=== PATIENT | male | born 1965 | race Caucasian/White ===

== ENCOUNTER 2018-03-21 06:31 | Inpatient (IN) | payer OTHER ==
[~2018-03-21] VITALS: Ht 180.3 cm; Wt 80.3 kg
[2018-03-21] MEDS ORDERED: SODIUM CHLORIDE 0.9% 1,000ML IVBOLUS ONE (07:00)
[2018-03-21] MEDS ORDERED: SODIUM CHLORIDE FLUSH 10ML SYR IVF ONE (07:00)
[2018-03-21] MEDS ORDERED: CLINDAMYCIN PMX 900MG/50ML 50 ML IVPB ONE (07:00)
[2018-03-21 07:11] LABS: BASOPHILS # (AUTO) 0.01 x10^3/uL (0-0.1); BASOPHILS % (AUTO) 0 % (0-1); EOSINOPHILS # (AUTO) 0.01 x10^3/uL (0-0.4); EOSINOPHILS % (AUTO) 0 % (1-7); LYMPHOCYTES # (AUTO) 0.96 x10^3/uL (1-3.4); LYMPHOCYTES % (AUTO) 9 % (22-44); MD NO; MEAN CORPUSCULAR HEMOGLOBIN 30.1 pg (27.5-34.5); MEAN CORPUSCULAR VOLUME 88.3 fL (81-97); MEAN PLATELET VOLUME 7.2 fL (7.4-10.4); MONOCYTES # (AUTO) 1.41 x10^3/uL (0.2-0.8); MONOCYTES % (AUTO) 14 % (2-9); NEUTROPHILS # (AUTO) 7.96 x10^3/uL (1.8-6.8); NEUTROPHILS % (AUTO) 77 % (42-75); PLATELET COUNT 244 x10^3/uL (130-400); RED BLOOD COUNT 5.42 x10^6/uL (4.38-5.82); RED CELL DISTRIBUTION WIDTH 13.9 % (9.4-14.8)
[2018-03-21] MEDS ORDERED: CLINDAMYCIN PMX 900MG/50ML 50 ML ONE (07:22)
[2018-03-21 07:23] LABS: ALBUMIN 3.5 g/dL (3.4-5.0); CHLORIDE 107 mmol/L (98-107); CREATININE 1.08 mg/dL (0.7-1.3)
[2018-03-21 07:24] LABS: ANION GAP 4 mmol/L (5-15); CALCIUM 8.9 mg/dL (8.5-10.1)
[2018-03-21] MEDS ORDERED: ACETAMINOPHEN 325 MG TABLET PO PRN (09:30)
[2018-03-21] MEDS ORDERED: morphine SULFATE 10 MG/ML, 1ML IVPush PRN (09:30)
[2018-03-21] MEDS ORDERED: hydrALAzine 20 MG/ML, 1ML IVPush PRN (09:30)
[2018-03-21] MEDS ORDERED: POLYETHYLENE GLYCOL 17 GM PACKET PO PRN (09:30)
[2018-03-21 09:58] LABS: HCT (SEDRATE) 47.8 % (39.2-51.8)
[2018-03-21 10:03] LABS: PROTHROMBIN TIME 10.3 Seconds (9.6-11.5)
[2018-03-21] MEDS: SODIUM CHLORIDE 0.9% 1,000 ML IV SCH ×3 (10:26→22:57)
[2018-03-21 11:08] VITALS: BP 124/77
[2018-03-21] MEDS ORDERED: FLUO20CA19 PO (11:12)
[2018-03-21] MEDS ORDERED: FLUOXETINE HCL 20 MG CAPSULE PO SCH (11:30)
[2018-03-21] MEDS ORDERED: GADOBUTROL 10 MMOL/10 ML PFS ONE (12:47)
[2018-03-21 14:01] VITALS: BP 114/74
[2018-03-21] MEDS ORDERED: VANCOMYCIN PER PHARMACY MC PRN (15:00)
[2018-03-21] MEDS ORDERED: PHARMACOKINETIC MONITORING MC PRN (15:30)
[2018-03-21] MEDS ORDERED: CLINDAMYCIN PMX 600MG/50ML 50 ML IV SCH (16:00)
[2018-03-21] MEDS: VANCOMYCIN 1,500 MG in SODIUM CHLORIDE 0.9% 250 ML IV SCH (16:51)
[2018-03-21] MEDS: AMPICILLIN/SULBACTAM 3 GM in SODIUM CHLORIDE 0.9% 100 ML IV SCH ×2 (16:51→22:49)
[2018-03-21 19:01] VITALS: BP 130/80
[2018-03-22 03:12] VITALS: BP 123/68
[2018-03-22] MEDS: VANCOMYCIN 1,500 MG in SODIUM CHLORIDE 0.9% 250 ML IV SCH ×2 (04:21→16:34)
[2018-03-22 05:01] LABS: BASOPHILS # (AUTO) 0.04 x10^3/uL (0-0.1); BASOPHILS % (AUTO) 1 % (0-1); EOSINOPHILS # (AUTO) 0.09 x10^3/uL (0-0.4); EOSINOPHILS % (AUTO) 1 % (1-7); LYMPHOCYTES # (AUTO) 1.43 x10^3/uL (1-3.4); LYMPHOCYTES % (AUTO) 15 % (22-44); MD NO; MEAN CORPUSCULAR HGB CONC 33.8 g/dL (33.2-36.2); MEAN CORPUSCULAR VOLUME 88.8 fL (81-97); MEAN PLATELET VOLUME 7.1 fL (7.4-10.4); MONOCYTES # (AUTO) 1.23 x10^3/uL (0.2-0.8); MONOCYTES % (AUTO) 13 % (2-9); NEUTROPHILS % (AUTO) 70 % (42-75); PLATELET COUNT 248 x10^3/uL (130-400); RED BLOOD COUNT 5.15 x10^6/uL (4.38-5.82); RED CELL DISTRIBUTION WIDTH 14.3 % (9.4-14.8)
[2018-03-22 05:11] LABS: ANION GAP 9 mmol/L (5-15); CALCIUM 8.3 mg/dL (8.5-10.1); CHLORIDE 109 mmol/L (98-107); CREATININE 0.88 mg/dL (0.7-1.3)
[2018-03-22] MEDS ORDERED: BACITRACIN 50,000 UNIT ONE (06:12)
[2018-03-22] MEDS ORDERED: BUPIVACAINE 0.25% ONE (06:12)
[2018-03-22] MEDS ORDERED: KETOROLAC 30 MG/1 ML ONE (06:31)
[2018-03-22] MEDS ORDERED: PROPOFOL 10 MG/ML, 20ML ONE (06:31)
[2018-03-22] MEDS ORDERED: ONDANSETRON 2MG/ML, 2ML ONE (06:31)
[2018-03-22] MEDS ORDERED: MIDAZOLAM 1 MG/ML, 2ML ONE (06:31)
[2018-03-22] MEDS ORDERED: FENTANYL PF 100 MCG/2ML ONE ×2 (06:31→06:47)
[2018-03-22] MEDS ORDERED: ROCURONIUM 10MG/ML,5ML ONE (06:32)
[2018-03-22] MEDS ORDERED: DEXAMETHASONE 4 MG/ML, 1ML ONE (06:40)
[2018-03-22] MEDS ORDERED: BUPIVACAINE 0.25% INFIL ONE (06:46)
[2018-03-22] MEDS ORDERED: BACITRACIN 50,000 UNIT IRRIG ONE (06:46)
[2018-03-22] MEDS ORDERED: OXYcodone 5 MG/5 ML ORAL.SOL UDC PO PRN (07:00)
[2018-03-22] MEDS ORDERED: ONDANSETRON ODT 8 MG PO PRN (07:00)
[2018-03-22] MEDS ORDERED: HYDROmorphone 1 MG/ML, 1ML IV PRN (07:00)
[2018-03-22] MEDS ORDERED: MEPERIDINE/PF 25MG/0.5ML IVPush PRN (07:00)
[2018-03-22] MEDS ORDERED: PROMETHAZINE 12.5 MG SUPP PR PRN (07:00)
[2018-03-22] MEDS ORDERED: MORPHINE SULFATE 4 MG/ML, 1ML IVPush PRN (07:00)
[2018-03-22] MEDS ORDERED: FENTANYL PF 100 MCG/2ML IV PRN (07:00)
[2018-03-22] MEDS ORDERED: LABETALOL 5MG/ML, 20ML IV PRN (07:00)
[2018-03-22] MEDS ORDERED: hydrALAzine 20 MG/ML, 1ML IV PRN (07:00)
[2018-03-22] MEDS: AMPICILLIN/SULBACTAM 3 GM in SODIUM CHLORIDE 0.9% 100 ML IV SCH ×3 (07:40→22:37)
[2018-03-22] MEDS ORDERED: OXYcodone 5 MG/5 ML ORAL.SOL UDC ONE (07:45)
[2018-03-22 08:45] VITALS: BP 119/88
[2018-03-22] MEDS: SODIUM CHLORIDE 0.9% 1,000 ML IV SCH ×2 (12:00→19:58)
[2018-03-22 14:40] VITALS: BP 110/65
[2018-03-22 19:09] VITALS: BP 109/70
[2018-03-23 00:25] VITALS: BP 124/73
[2018-03-23] MEDS: VANCOMYCIN 1,500 MG in SODIUM CHLORIDE 0.9% 250 ML IV SCH (03:47)
[2018-03-23] MEDS: SODIUM CHLORIDE 0.9% 1,000 ML IV SCH ×2 (03:47→12:00)
[2018-03-23 05:49] LABS: CHLORIDE 109 mmol/L (98-107)
[2018-03-23 05:59] LABS: ALANINE AMINOTRANSFERASE 44 U/L (12-78); ALBUMIN 2.7 g/dL (3.4-5.0); ALKALINE PHOSPHATASE 67 U/L (45-117); ANION GAP 7 mmol/L (5-15); BILIRUBIN,TOTAL 1.2 mg/dL (0.2-1.0); CALCIUM 7.8 mg/dL (8.5-10.1); CREATININE 0.82 mg/dL (0.7-1.3); TOTAL PROTEIN 5.7 g/dL (6.4-8.2)
[2018-03-23] MEDS: AMPICILLIN/SULBACTAM 3 GM in SODIUM CHLORIDE 0.9% 100 ML IV SCH ×2 (06:48→15:00)
[2018-03-23 07:04] VITALS: BP 124/72
[2018-03-23] MEDS ORDERED: FLUOXETINE HCL 20 MG CAPSULE PO SCH (09:00)
[2018-03-23 12:35] VITALS: BP 138/85
[2018-03-23] MEDS ORDERED: AMOX1TAB12 PO (13:45)
[2018-03-23] MEDS ORDERED: DOXY100T PO (13:45)
== END 2018-03-23 16:15 | disposition home or self-care (01) | DRG 513 ==
LOC: ED 07:59 → EDIP 08:00 → ED 08:30 → 4NOR 09:21 → DCLOUNGE 03-23 16:06
PROVIDERS: ADMIT Hospitalist; ATTEND Hospitalist
PROC: 0L980ZZ Drainage of Left Hand Tendon, Open Approach (ICD-10-PCS; principal; 2018-03-21)
DX: M65.142 Other infective (teno)synovitis, left hand (principal); L03.114 Cellulitis of left upper limb; S61.233A Puncture wound without foreign body of left middle finger without damage to nail, initial encounter; F41.9 Anxiety disorder, unspecified; S60.453A Superficial foreign body of left middle finger, initial encounter; L03.012 Cellulitis of left finger; F32.9 Major depressive disorder, single episode, unspecified; X58.XXXA Exposure to other specified factors, initial encounter; Y93.89 Activity, other specified; Y92.096 Garden or yard of other non-institutional residence as the place of occurrence of the external cause; Y99.8 Other external cause status; Z86.73 Personal history of transient ischemic attack (TIA), and cerebral infarction without residual deficits
CPT/HCPCS: 36415; 80048; 80053; 82040; 83735; 84100; 84443; 85025; 85610; 85651; 87040; 87070; 87075; 87205; 99285; A9585; J0295; J1100; J1885; J2250; J2405; J2704; J3010; J3370; J3490; J7030; J7050

== ENCOUNTER 2021-03-15 21:21 | Emergency (ER) | payer OTHER ==
[~2021-03-15 21:21] MED LIST: AMOX1TAB12 PO; DOXY100T PO; FLUO20CA19 PO; QUET25TA5 PO
[2021-03-15] MEDS ORDERED: DIPH,PERTUSS(ACELL),TET VAC/PF 0.5 ML IM-VACC ONE (22:00)
[2021-03-15] MEDS ORDERED: LIDOCAINE 1%-EPI 1:100K, 20ML INFIL ONE (22:00)
--- NOTE | 2021-03-16 01:20 | NUR ---
Patient to room from lobby. Medicated patient per mar. Awaiting sutures.
[2021-03-16] MEDS ORDERED: LIDOCAINE 1%-EPI 1:100K, 20ML ONE (01:22)
[2021-03-16] MEDS ORDERED: DIPH,PERTUSS(ACELL),TET VAC/PF 0.5 ML IM-VACC ONE (01:23)
[2021-03-16 01:29] VITALS: BP 114/79
--- NOTE | 2021-03-16 01:56 | NUR ---
PROCESSING OPERATOR AT BEDSIDE FOR WOUND IRRIGATION
[2021-03-16] MEDS ORDERED: BACITRACIN ZINC OINT 500U/GM, 0.9 GM ONE (02:37)
--- NOTE | 2021-03-16 02:39 | NUR ---
SUTURING DONE. BACITRACIN APPLIED.
[2021-03-16] MEDS ORDERED: BACITRACIN ZINC OINT 500U/GM, 0.9 GM TP STA (02:40)
--- NOTE | 2021-03-16 02:49 | NUR ---
PATIENT DISCHARGED WITH INSTRUCTION. VERBALIZED UNDERSTANDING.
== END 2021-03-16 02:52 | disposition home or self-care (01) ==
LOC: ED 21:30
DX: S01.81XA Laceration without foreign body of other part of head, initial encounter (principal); X58.XXXA Exposure to other specified factors, initial encounter; Y93.89 Activity, other specified; Y92.009 Unspecified place in unspecified non-institutional (private) residence as the place of occurrence of the external cause; Y99.8 Other external cause status
CPT/HCPCS: 70450; 70486; 90471; 90715; 99285

== ENCOUNTER 2021-06-17 17:20 | Emergency (ER) | payer OTHER ==
[~2021-06-17] VITALS: Ht 180.3 cm; Wt 82.8 kg
--- NOTE | 2021-06-17 18:31 | NUR ---
PT VERY FIGITY IN [place], ATTEMPTING TO GET OUT OF GURNEY. PT UNSTEADY ON FEET. REDIRECTED TO STAY IN [place]. IV SECURED HE WAS ATTEMPTING TO PULL OUT. WILL CONTINUE TO MONTIOR CLOSEY
[2021-06-17] MEDS ORDERED: HALOPERIDOL 5 MG/ML ONE (19:27)
[2021-06-17] MEDS ORDERED: SODIUM CHLORIDE 0.9% 1,000ML IVBOLUS ONE (19:30)
--- NOTE | 2021-06-17 19:30 | NUR ---
ATTEMPTED TO ASSIST PATIENT WITH URINE SAMPLE. PATIENT UNABLE TO PROVIDE SAMPLE AT THIS TIME. VSS. CALL PROCTOR IN REACH. BED IN LOW POSITION. WILL CONTINUE TO MONITOR.
[2021-06-17 19:35] LABS: BASOPHILS % (AUTO) 0 % (0-1); EOSINOPHILS % (AUTO) 0 % (1-7); LYMPHOCYTES % (AUTO) 5 % (22-44); MEAN CORPUSCULAR HEMOGLOBIN 30.2 pg (27.5-34.5); MEAN CORPUSCULAR HGB CONC 34.3 g/dL (33.2-36.2); MEAN PLATELET VOLUME 6.6 fL (7.4-10.4); MONOCYTES % (AUTO) 6 % (2-9); NEUTROPHILS % (AUTO) 88 % (42-75); PLATELET COUNT 356 x10^3/uL (130-400); RED CELL DISTRIBUTION WIDTH 14.5 % (9.4-14.8)
[2021-06-17 19:38] LABS: ALANINE AMINOTRANSFERASE 38 U/L (12-78); ALBUMIN 3.9 g/dL (3.4-5.0); ANION GAP 13 mmol/L (5-15); CALCIUM 8.8 mg/dL (8.5-10.1); CHLORIDE 108 mmol/L (98-107); CREATININE 1.35 mg/dL (0.7-1.3); SALICYLATE LEVEL < 1.7 mg/dL (2.8-20.0)
[2021-06-17 19:48] LABS: ALKALINE PHOSPHATASE 104 U/L (45-117); BILIRUBIN,TOTAL 1.1 mg/dL (0.2-1.0); TOTAL PROTEIN 7.3 g/dL (6.4-8.2)
[2021-06-17] MEDS ORDERED: HALOPERIDOL 5 MG/ML IV ONE (20:00)
--- NOTE | 2021-06-17 20:00 | NUR ---
PATIENT REMOVED IV. PATIENT RECEIVED 500ML OF NS. HR IMPROVED. WILL HOLD OFF ON PLACING ANOTHER IV AT THIS DUE TO PSYCH HX AND WORKUP AT THIS TIME.
[2021-06-17 20:27] LABS: MICROSCOPIC NOT IND
--- NOTE | 2021-06-17 20:30 | NUR ---
PATIENT RESTING IN STRETCHER WITH EYES CLOSED. NO LONGER FIGTY. NAD. VSS. CALL PROCTOR IN REACH. WILL CONTINUE TO MONITOR.
[2021-06-17 20:38] LABS: AMPHETAMINE SCREEN, URINE Negative (Negative); BARBITURATE SCREEN, URINE Negative (Negative); BENZODIAZEPINE SCREEN, URINE Negative (Negative); CANNABINOID SCREEN, URINE Negative (Negative); COCAINE SCREEN, URINE Negative (Negative); METHADONE SCREEN, URINE Negative (Negative); OPIATE SCREEN, URINE Negative (Negative)
[2021-06-17] MEDS ORDERED: LORazepam 2 MG/ML, 1ML ONE (21:00)
[2021-06-17] MEDS ORDERED: LORazepam 2 MG/ML, 1ML IVPush ONE (21:00)
[2021-06-17] MEDS ORDERED: LACTATED RINGERS 1,000 ML IVBOLUS ONE (21:00)
--- NOTE | 2021-06-17 22:48 | NUR ---
U DENIED PATIENT FOR ADMISSION
--- NOTE | 2021-06-17 22:53 | NUR ---
Inappropriate insurance for admission
--- NOTE | 2021-06-18 01:55 | NUR ---
REPORT GIVEN TO BRAYDON CARBJAAL WHO WILL ASSUME CARE.
--- NOTE | 2021-06-18 02:03 | NUR ---
[facility]
--- NOTE | 2021-06-18 02:13 | NUR ---
[facility] ([facility]) NO BEDS AT THIS TIME
--- NOTE | 2021-06-18 02:45 | NUR ---
Patient is resting comfortably in bed. Bed in lowest, rails engaged, call light on lap. A&OX4, BREATHING EVEN AND UNLABORED. PT APPEARS ANXIOUS AND FIDGETY SAFETY PRECAUTIONS PUT INTOPLACE. SITTER OUTSIDE ROOM. PERSONAL BELONGINGS SECURED IN LOCKERS. GARAGE DOORS SECURED. ED SUICIDE TRAY ORDERED FOR MORNING. INFORMED PT THAT WE ARE WAITING ON A HOSPITAL BED.
--- NOTE | 2021-06-18 03:38 | NUR ---
[facility] FROM [facility] CALLED. THEY ARE CURRENTLY FULL BUT EXPECT TO HAVE DISCHARGES IN THE AM
--- NOTE | 2021-06-18 04:16 | NUR ---
Patient is SLEEPING comfortably in bed. EYES CLOSED. Bed in lowest, rails engaged, call light on lap. WCTM. NADN. BREATHING EVEN AND UNLABORED. ALL SAFETY MONITORS IN PLACE
--- NOTE | 2021-06-18 05:48 | NUR ---
SPOKE TO HOUSEKEEPING ABOUT NOT RECEIVING HOSPITAL BED THAT WAS ASKED FOR EARLIER IN NIGHT. HOUSE KEEPING STATED THEY WILL SEND IT SOON
--- NOTE | 2021-06-18 06:21 | NUR ---
PT MOVED FROM [facility] TO HOSPITAL BED FOR BETTER COMFORT. PT IN NADN. PT APPRECIATIVE OF NEW BED. TM SAFETY PRECAUTIONS IN PLACE.
--- NOTE | 2021-06-18 06:52 | NUR ---
gave report to junior. transfer of care
--- NOTE | 2021-06-18 08:39 | NUR ---
pt resting quietly. no s/s of distress
[2021-06-18 09:00] VITALS: BP 129/87
[2021-06-18] MEDS ORDERED: RISPERIDONE 2 MG TABLET ONE (11:48)
[2021-06-18] MEDS ORDERED: FLUOXETINE HCL 20 MG CAPSULE ONE (11:49)
--- NOTE | 2021-06-18 11:57 | NUR ---
Lunch tray ordred and drink given
[2021-06-18] MEDS ORDERED: FLUOXETINE HCL 20 MG CAPSULE PO SCH (12:00)
[2021-06-18] MEDS ORDERED: RISPERIDONE 1 MG TABLET PO SCH (12:00)
--- NOTE | 2021-06-18 12:35 | NUR ---
PD at bedside
--- NOTE | 2021-06-18 14:06 | NUR ---
Pt sleeping, sitter at door
--- NOTE | 2021-06-18 15:33 | NUR ---
pt sleeping, sitter at door
[2021-06-19] MEDS ORDERED: RISP3TAB24 PO (12:59)
[2021-06-19] MEDS ORDERED: FLUO20CA19 PO (12:59)
[2021-06-19] MEDS ORDERED: CEFU500T50 PO (12:59)
[2021-06-19] MEDS ORDERED: DEXA10PO2 PO (12:59)
[2021-06-19] MEDS ORDERED: BENZ1TAB61 PO (12:59)
== END 2021-06-18 18:31 | disposition admitted as inpatient to this hospital (09) ==
LOC: ED 18:30
DX: R45.851 Suicidal ideations (principal); F23 Brief psychotic disorder; R42 Dizziness and giddiness
CPT/HCPCS: 36415; 70450; 71045; 80053; 80299; 80307; 80320; 80329; 81003; 82550; 84443; 85025; 96374; 96375; 99285; J1630; J2060; J7030; J7120; G0480

== ENCOUNTER 2021-06-18 14:40 | Inpatient (IN) | payer OTHER ==
[~2021-06-18] VITALS: Ht 180.3 cm; Wt 77.2 kg
[2021-06-18] MEDS ORDERED: BISACODYL 10 MG SUPP PR PRN (16:00)
[2021-06-18] MEDS ORDERED: DOCUSATE 100 MG CAPSULE PO PRN (16:00)
[2021-06-18] MEDS ORDERED: ONDANSETRON ODT 4 MG PO PRN (16:00)
[2021-06-18] MEDS ORDERED: ACETAMINOPHEN 325 MG TABLET PO PRN (16:00)
[2021-06-18] MEDS ORDERED: POLYETHYLENE GLYCOL 17 GM PACKET PO PRN (16:00)
[2021-06-18] MEDS ORDERED: PLEASE ENTER HEIGHT AND WEIGHT MC SCH (18:00)
[2021-06-18 19:44] VITALS: BP 106/78
[2021-06-18 21:45] VITALS: BP 120/67
[2021-06-18] MEDS: RISPERIDONE 1 MG TABLET PO SCH (23:43)
[2021-06-19 06:42] LABS: CHOL/HDL RATIO 2.2; LDL/HDL RATIO 0.9 (0.5-3.0)
[2021-06-19 07:39] VITALS: BP 126/85
[2021-06-19] MEDS: RISPERIDONE 1 MG TABLET PO SCH ×2 (09:16→20:24)
[2021-06-19] MEDS: FLUOXETINE HCL 20 MG CAPSULE PO SCH (09:17)
[2021-06-19] MEDS: QUETIAPINE 25MG TABLET PO PRN ×2 (09:18→20:24)
[2021-06-19] MEDS ORDERED: RISP3TAB24 PO (12:59)
[2021-06-19] MEDS ORDERED: DEXA10PO2 PO (12:59)
[2021-06-19] MEDS ORDERED: BENZ1TAB61 PO (12:59)
[2021-06-19] MEDS ORDERED: FLUO20CA19 PO (12:59)
[2021-06-19] MEDS ORDERED: CEFU500T50 PO (12:59)
[2021-06-19 14:16] LABS: BASOPHILS % (AUTO) 1 % (0-1); EOSINOPHILS % (AUTO) 2 % (1-7); LYMPHOCYTES % (AUTO) 29 % (22-44); MEAN CORPUSCULAR HEMOGLOBIN 30.2 pg (27.5-34.5); MEAN CORPUSCULAR HGB CONC 33.8 g/dL (33.2-36.2); MONOCYTES % (AUTO) 12 % (2-9); NEUTROPHILS % (AUTO) 56 % (42-75); PLATELET COUNT 232 x10^3/uL (130-400); RED BLOOD COUNT 5.26 x10^6/uL (4.38-5.82); RED CELL DISTRIBUTION WIDTH 14.8 % (9.4-14.8)
[2021-06-19 14:26] LABS: ANION GAP 8 mmol/L (5-15); CALCIUM 8.3 mg/dL (8.5-10.1); CHLORIDE 107 mmol/L (98-107); CREATININE 1.14 mg/dL (0.7-1.3)
[2021-06-19 19:31] VITALS: BP 115/76
[2021-06-20 07:34] VITALS: BP 124/85
[2021-06-20] MEDS: QUETIAPINE 25MG TABLET PO PRN ×2 (09:19→20:29)
[2021-06-20] MEDS: RISPERIDONE 1 MG TABLET PO SCH ×2 (09:19→20:29)
[2021-06-20] MEDS: FLUOXETINE HCL 20 MG CAPSULE PO SCH (09:20)
[2021-06-20 19:14] VITALS: BP 106/70
[2021-06-20] MEDS: MELATONIN 5 MG TABLET PO SCH (20:29)
[2021-06-21 07:09] VITALS: BP 114/78
[2021-06-21] MEDS: FLUOXETINE HCL 20 MG CAPSULE PO SCH (08:44)
[2021-06-21] MEDS: RISPERIDONE 1 MG TABLET PO SCH ×2 (08:44→20:37)
[2021-06-21 18:33] VITALS: BP 124/86
[2021-06-21] MEDS: MELATONIN 5 MG TABLET PO SCH (20:37)
[2021-06-22 07:34] VITALS: BP 120/85
[2021-06-22] MEDS: FLUOXETINE HCL 20 MG CAPSULE PO SCH (08:13)
[2021-06-22] MEDS: RISPERIDONE 1 MG TABLET PO SCH ×2 (08:13→20:22)
[2021-06-22 19:48] VITALS: BP 118/82
[2021-06-22] MEDS: MELATONIN 5 MG TABLET PO SCH (20:21)
[2021-06-23 07:34] VITALS: BP 121/84
[2021-06-23] MEDS: RISPERIDONE 1 MG TABLET PO SCH ×2 (08:02→20:15)
[2021-06-23] MEDS: FLUOXETINE HCL 20 MG CAPSULE PO SCH (08:02)
[2021-06-23] MEDS: ACAMPROSATE 333 MG TABLET.DR PO SCH ×2 (16:48→20:15)
[2021-06-23 19:57] VITALS: BP 119/79
[2021-06-23] MEDS: MELATONIN 5 MG TABLET PO SCH (20:14)
[2021-06-24 06:25] VITALS: BP 121/85
[2021-06-24] MEDS: FLUOXETINE HCL 20 MG CAPSULE PO SCH (07:58)
[2021-06-24] MEDS: ACAMPROSATE 333 MG TABLET.DR PO SCH ×3 (07:58→20:22)
[2021-06-24] MEDS: RISPERIDONE 1 MG TABLET PO SCH ×2 (07:59→20:22)
[2021-06-24] MEDS: QUETIAPINE 25MG TABLET PO PRN (17:01)
[2021-06-24 19:36] VITALS: BP 133/76
[2021-06-24] MEDS: MELATONIN 5 MG TABLET PO SCH (20:22)
[2021-06-25 07:34] VITALS: BP 134/104
[2021-06-25] MEDS: FLUOXETINE HCL 20 MG CAPSULE PO SCH (08:42)
[2021-06-25] MEDS: ACAMPROSATE 333 MG TABLET.DR PO SCH ×3 (08:42→20:40)
[2021-06-25] MEDS: QUETIAPINE 25MG TABLET PO PRN ×2 (08:43→19:33)
[2021-06-25] MEDS: RISPERIDONE 1 MG TABLET PO SCH ×2 (08:44→20:40)
[2021-06-25] MEDS ORDERED: ACAM333T7 PO (15:32)
[2021-06-25] MEDS ORDERED: RISP1TAB90 PO (15:32)
[2021-06-25] MEDS ORDERED: QUET25TA7 PO (15:32)
[2021-06-25] MEDS ORDERED: MELA5TAB14 PO (15:32)
[2021-06-25] MEDS ORDERED: FLUO20CA23 PO (15:32)
[2021-06-25 19:26] VITALS: BP 114/74
[2021-06-25] MEDS: MELATONIN 5 MG TABLET PO SCH (20:40)
[2021-06-26 07:00] VITALS: BP 126/77
[2021-06-26] MEDS: FLUOXETINE HCL 20 MG CAPSULE PO SCH (08:18)
[2021-06-26] MEDS: ACAMPROSATE 333 MG TABLET.DR PO SCH (08:18)
[2021-06-26] MEDS: RISPERIDONE 1 MG TABLET PO SCH (08:19)
== END 2021-06-26 11:00 | disposition home or self-care (01) | DRG 885 ==
LOC: 3E 17:47
PROVIDERS: ADMIT Psychiatry & Neurology Psychosomatic Medicine; ATTEND Psychiatry & Neurology Psychosomatic Medicine
DX: F31.5 Bipolar disorder, current episode depressed, severe, with psychotic features (principal); R45.851 Suicidal ideations; F10.10 Alcohol abuse, uncomplicated; F41.1 Generalized anxiety disorder; Z20.822 Contact with and (suspected) exposure to COVID-19; D72.829 Elevated white blood cell count, unspecified; G47.00 Insomnia, unspecified; I10 Essential (primary) hypertension; Z79.899 Other long term (current) drug therapy; Z82.49 Family history of ischemic heart disease and other diseases of the circulatory system
CPT/HCPCS: 36415; 80048; 80061; 84439; 84443; 85025; 87426; 93005